=== PATIENT | female | born 1960 | race American Indian/Alaskan Native ===

== ENCOUNTER 2017-10-26 15:55 | Emergency (ER) | payer BC ==
[2017-10-26] MEDS ORDERED: TYLENOL PO ONE (17:17)
--- NOTE | 2017-10-26 17:22 | Emergency Department Report ---
ED General Adult HPI - General Chief complaint: Weakness Stated complaint: DIZZINESS/WEAKNESS Time Seen by Provider: 10/26/17 17:10 Source: patient Mode of arrival: Ambulatory Limitations: No Limitations - History of Present Illness Initial comments: Patient is a 57-year-old female with past medical history of hypertension. Patient is taking Norvasc 2.5 mg daily. 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 Patient stated that she started feeling dizzy. She checked her blood pressure which was 179/80. Patient also complaining of slight headache. She denied any weakness, numbness or tingling sensation. Patient denied any chest pain, neck pain or abdominal pain. - Related Data Allergies Allergy/AdvReac Type Severity Reaction Status Date / Time No Known Allergies Allergy Unverified 05/20/14 05:10 ED Review of Systems ROS: Stated complaint: DIZZINESS/WEAKNESS Other details as noted in HPI Comment: All other systems reviewed and negative Constitutional: denies: chills, fever Respiratory: denies: cough, orthopnea, shortness of breath Cardiovascular: denies: chest pain, palpitations Gastrointestinal: denies: abdominal pain, nausea, vomiting Musculoskeletal: denies: back pain Neurological: headache. denies: weakness, numbness, paresthesias, confusion, abnormal gait ED Past Medical Hx - Past Medical History Previous Medical History?: Yes Hx Hypertension: Yes - Surgical History Additional Surgical History: Appendectomy - Social History Smoking Status: Never Smoker Substance Use Type: None ED Physical Exam - General Limitations: No Limitations General appearance: alert, in no apparent distress - Head Head exam: Present: atraumatic, normocephalic, normal inspection - Eye Eye exam: Present: normal appearance, PERRL - ENT ENT exam: Present: normal exam, normal orophraynx, mucous membranes moist - Neck Neck exam: Present: normal inspection, full ROM. Absent: tenderness, meningismus, lymphadenopathy, thyromegaly - Respiratory Respiratory exam: Present: normal lung sounds bilaterally. Absent: respiratory distress, wheezes, rales, rhonchi, stridor, chest wall tenderness, accessory muscle use, decreased breath sounds, prolonged expiratory - Cardiovascular Cardiovascular Exam: Present: regular rate, normal rhythm, normal heart sounds - GI/Abdominal GI/Abdominal exam: Present: soft, normal bowel sounds. Absent: distended, tenderness, guarding, rebound, rigid, organomegaly, mass, bruit, pulsatile mass , hernia - Extremities Exam Extremities exam: Present: normal inspection, full ROM, normal capillary refill - Back Exam Back exam: Present: normal inspection, full ROM. Absent: tenderness, CVA tenderness (R), CVA tenderness (L), muscle spasm, paraspinal tenderness, vertebral tenderness, rash noted - Neurological Exam Neurological exam: Present: alert, oriented X3, CN II-XII intact, normal gait, reflexes normal - Skin Skin exam: Present: warm, intact ED Course Vital Signs 10/26/17 10/26/17 10/26/17 16:16 18:57 19:12 Temperature 98.5 F 98.6 F Pulse Rate 61 62 66 Respiratory 18 18 Rate Blood Pressure 179/80 156/103 Blood Pressure 178/91 [Left] O2 Sat by Pulse 100 99 Oximetry 10/26/17 19:31 Temperature 98.2 F Pulse Rate 66 Respiratory 16 Rate Blood Pressure Blood Pressure 146/87 [Left] O2 Sat by Pulse 99 Oximetry ED Medical Decision Making - Lab Data Result diagrams: 10/26/17 18:15 10/26/17 18:15 - Radiology Data Radiology results: report reviewed Referring Physician: MORENITA JIMENEZ Patient Name: JAVED HULL Date of : 1960 Sex: Female Report Date: 2017-10-26 Report Status: Finalized Findings [facility] [address] [place] [address] Cat Scan Report Signed Patient: JAVED HULL MR#: [id number] : 1960 Acct:[id number] Age/Sex: 57 / F ADM Date: 10/26/17 Loc: ED Attending Dr: Ordering Physician: MORENITA JIMENEZ Date of Service: 10/26/17 Procedure(s): CT head/brain wo con Accession Number(s): [id number] cc: MORENITA JIMENEZ FINAL REPORT EXAM: CT HEAD/BRAIN WO CON HISTORY: headache, high BP TECHNIQUE: CT examination of the head without IV contrast PRIORS: None. FINDINGS: No acute air-fluid level visualized in the included air-filled sinuses. Bone windows demonstrate no acute fracture. The brain is without mass, mass effect, hemorrhage, or acute infarct. There is no extra-axial intracranial bleed, brain bleed, or midline shift. The ventricles and sulci are age-appropriate. IMPRESSION: No acute CVA, intracranial bleed, or brain mass Transcribed By: BAL Dictated By: MATTHEW HAIDER MD Electronically Authenticated By: MATTHEW HAIDER MD Signed Date/Time: 10/26/171757 DD/ 57 TD/TT: 10/26/171757 - Medical Decision Making Patient stated that she is feeling much better. No headache or dizziness. Critical care attestation.: If time is entered above; I have spent that time in minutes in the direct care of this critically ill patient, excluding procedure time. ED Disposition Clinical Impression: Headache, Malignant hypertension Disposition: DC-01 TO HOME OR SELFCARE Is pt being admited?: No Condition: Stable Instructions: Hypertension (ED) Referrals: PRIMARY CARE, [Primary Care Provider] - 3-5 Days
--- NOTE | 2017-10-26 18:02 | Cat Scan Report ---
FINAL REPORT EXAM: CT HEAD/BRAIN WO CON HISTORY: headache, high BP TECHNIQUE: CT examination of the head without IV contrast PRIORS: None. FINDINGS: No acute air-fluid level visualized in the included air-filled sinuses. Bone windows demonstrate no acute fracture. The brain is without mass, mass effect, hemorrhage, or acute infarct. There is no extra-axial intracranial bleed, brain bleed, or midline shift. The ventricles and sulci are age-appropriate. IMPRESSION: No acute CVA, intracranial bleed, or brain mass
[2017-10-26 18:30] LABS: Basophils % (Auto) 0.2 % (0.0-1.8); Eosinophils # (Auto) 0.1 K/mm3 (0.0-0.4); Eosinophils % (Auto) 2.1 % (0.0-4.3); Hematocrit 40.1 % (30.3-42.9); Hemoglobin 13.5 gm/dl (10.1-14.3); Lymphocytes # (Auto) 1.9 K/mm3 (1.2-5.4); Lymphocytes % (Auto) 42.3 % (13.4-35.0); Mean Corpuscular HGB Conc 34 % (30-34); Mean Corpuscular Hemoglobin 33 pg (28-32); Mean Corpuscular Volume 97 fl (79-97); Monocytes # (Auto) 0.5 K/mm3 (0.0-0.8); Monocytes % (Auto) 12.2 % (0.0-7.3); Platelet Count 213 K/mm3 (140-440); Red Blood Count 4.12 M/mm3 (3.65-5.03); Red Cell Distribution Width 13.7 % (13.2-15.2)
[2017-10-26 18:40] LABS: BUN/Creatinine Ratio 20; Blood Urea Nitrogen 10 mg/dL (7-17); Calcium 9.6 mg/dL (8.4-10.2); Hemolysis Index 11
[2017-10-26] MEDS ORDERED: CATAPRES PO ONE (19:05)
[2017-10-26 19:31] VITALS: BP 146/87
== END 2017-10-26 19:31 | disposition home or self-care (01) ==
LOC: ED 15:55
DX: I10 Essential (primary) hypertension (principal)
CPT/HCPCS: 36415; 70450; 80048; 85025; 99284

== ENCOUNTER 2018-01-09 10:15 | Outpatient (CLI) | payer BC ==
[2018-01-09 10:48] LABS: Hematocrit 42.4 % (30.3-42.9); Hemoglobin 14.5 gm/dl (10.1-14.3); Mean Corpuscular HGB Conc 34 % (30-34); Mean Corpuscular Hemoglobin 32 pg (28-32); Mean Corpuscular Volume 95 fl (79-97); Platelet Count 234 K/mm3 (140-440); Red Blood Count 4.47 M/mm3 (3.65-5.03); Red Cell Distribution Width 13.4 % (13.2-15.2)
[2018-01-09 11:22] LABS: Free T4 (Free Thyroxine) 1.28 ng/dL (0.76-1.46)
[2018-01-09 11:31] LABS: Alanine Aminotransferase 9 units/L (7-56); Albumin 4.5 g/dL (3.9-5); BUN/Creatinine Ratio 16; Blood Urea Nitrogen 8 mg/dL (7-17); Calcium 9.7 mg/dL (8.4-10.2); Chol/HDL Ratio 3.39 %; HDL Cholesterol 58 mg/dL (40-59); Hemolysis Index 2; LDL Cholesterol,Direct 140 mg/dL (50-130)
== END 2018-01-09 10:16 | disposition home or self-care (01) ==
LOC: LAB 10:15
PROVIDERS: ATTEND Internal Medicine
DX: I10 Essential (primary) hypertension (principal)
CPT/HCPCS: 36415; 80053; 80061; 82652; 83036; 84439; 84443; 85027

== ENCOUNTER 2018-08-20 07:33 | Outpatient (CLI) | payer BC ==
[2018-08-20 10:36] LABS: Alanine Aminotransferase 10 units/L (7-56); Albumin 4.5 g/dL (3.9-5); BUN/Creatinine Ratio 18; Blood Urea Nitrogen 11 mg/dL (7-17); Calcium 9.3 mg/dL (8.4-10.2); Hemolysis Index 9
== END 2018-08-20 07:34 | disposition home or self-care (01) ==
LOC: LAB 07:33
PROVIDERS: ATTEND Internal Medicine
DX: R73.03 Prediabetes (principal)
CPT/HCPCS: 36415; 80053; 83036

== ENCOUNTER 2019-01-16 14:01 | Outpatient (CLI) | payer BC ==
--- NOTE | 2019-01-16 16:28 | Mammography Report ---
DIGITAL SCREENING MAMMOGRAM WITH CAD, 01/16/2019 INDICATION: Routine screening mammography. TECHNIQUE: Digital bilateral 2D mammography was obtained in the craniocaudal and mediolateral obliq ue projections. This examination was interpreted with the benefit of Computer-Aided Detection analysi s. COMPARISON: 01/08/2014 FINDINGS: Breast Density: There are scattered areas of fibroglandular density. A right asymmetry on the MLO view requires additional imaging. This may be a vessel. No architectural distortion or suspicious calcifications of the right breast. There is no evidence of dominant mass, suspicious calcifications or architectural distortion in the left breast. IMPRESSION: Right asymmetry requiring additional imaging. Recommend recall for right lateral and MLO spot compression views and right breast ultrasound if needed. Follow up recommendation: Special View: Spot Category 0: Incomplete. Needs additional imaging evaluation and/or prior mammograms for comparison. A "normal" or negative report should not discourage follow up or biopsy of a clinically significant f inding. A written summary of these findings will be mailed to the patient. The patient will be entered into a mammography reporting system which will generate a reminder letter for the patient's next appointmen t at the appropriate interval. The [employer] recommends yearly mammograms starting at age 40 and continuing as l ruby as a woman is in good health. Breast MRI is recommended for women with an approximate 20-25% or greater lifetime risk of breast cancer, including women with a strong family history of breast or ova lien cancer or who have been treated for Hodgkin's disease. Signer Name: Nav Wakefield MD Signed: 01/16/2019 4:23 PM Workstation Name: [id number]
== END 2019-01-16 14:02 | disposition home or self-care (01) ==
LOC: MAMMO 14:01
PROVIDERS: ATTEND Internal Medicine
DX: Z12.31 Encounter for screening mammogram for malignant neoplasm of breast (principal); I10 Essential (primary) hypertension
CPT/HCPCS: 77067

== ENCOUNTER 2019-01-27 16:04 | Outpatient (CLI) | payer BC ==
[2019-01-27 16:30] LABS: Basophils % (Auto) 0.5 % (0.0-1.8); Eosinophils # (Auto) 0.1 K/mm3 (0.0-0.4); Eosinophils % (Auto) 2.1 % (0.0-4.3); Hemoglobin 14.1 gm/dl (10.1-14.3); Lymphocytes # (Auto) 2.2 K/mm3 (1.2-5.4); Lymphocytes % (Auto) 42.2 % (13.4-35.0); Mean Corpuscular HGB Conc 34 % (30-34); Mean Corpuscular Volume 97 fl (79-97); Monocytes # (Auto) 0.6 K/mm3 (0.0-0.8); Monocytes % (Auto) 12.4 % (0.0-7.3); Platelet Count 200 K/mm3 (140-440); Red Blood Count 4.34 M/mm3 (3.65-5.03); Red Cell Distribution Width 13.7 % (13.2-15.2)
[2019-01-27 17:34] LABS: Alanine Aminotransferase 10 units/L (7-56); Albumin 4.2 g/dL (3.9-5); BUN/Creatinine Ratio 20; Blood Urea Nitrogen 10 mg/dL (7-17); Calcium 9.5 mg/dL (8.4-10.2); Chol/HDL Ratio 3.22 %; HDL Cholesterol 54 mg/dL (40-59); Hemolysis Index 3; LDL Cholesterol,Direct 116 mg/dL (50-130)
== END 2019-01-27 16:05 | disposition home or self-care (01) ==
LOC: LAB 16:04
PROVIDERS: ATTEND Internal Medicine
DX: Z13.220 Encounter for screening for lipoid disorders (principal); Z13.29 Encounter for screening for other suspected endocrine disorder; Z13.228 Encounter for screening for other metabolic disorders; Z13.0 Encounter for screening for diseases of the blood and blood-forming organs and certain disorders involving the immune mechanism; E55.9 Vitamin D deficiency, unspecified; I10 Essential (primary) hypertension
CPT/HCPCS: 36415; 80053; 80061; 82652; 83036; 84443; 85025

== ENCOUNTER 2019-01-30 13:19 | Outpatient (CLI) | payer BC ==
--- NOTE | 2019-01-30 14:04 | Mammography Report ---
DIGITAL DIAGNOSTIC MAMMOGRAM WITH CAD, 01/30/2019 INDICATION: Recalled for asymmetry identified at screening. TECHNIQUE: Digital right mammographic imaging was performed. Spot compression views were obtained. This examination was interpreted with the benefit of Computer-aided Detection analysis. COMPARISON: 01/16/2019 FINDINGS: Breast Density: There are scattered areas of fibroglandular density. Lateral medial and spot compression MLO views were performed and are negative. IMPRESSION: No mammographic evidence of malignancy. Follow up recommendation: Routine yearly BI-RADS Category 1: Negative. A "normal" or negative report should not discourage follow up or biopsy of a clinically significant f inding. A written summary of these findings will be mailed to the patient. The patient will be entered into a mammography reporting system which will generate a reminder letter for the patient's next appointmen t at the appropriate interval. According to the [employer], yearly mammograms are recommended starting at age 40 and continuing as long as a woman is in good health. Breast MRI is recommended for women with an gamaliel roximately 20-25% or greater lifetime risk of breast cancer, including women with a strong family his tory of breast or ovarian cancer and women who have been treated for Hodgkin's disease. Signer Name: Nav Wakefield MD Signed: 01/30/2019 2:00 PM Workstation Name: [id number]
== END 2019-01-30 13:20 | disposition home or self-care (01) ==
LOC: MAMMO 13:19
PROVIDERS: ATTEND Internal Medicine
DX: R92.8 Other abnormal and inconclusive findings on diagnostic imaging of breast (principal); I10 Essential (primary) hypertension

== ENCOUNTER 2019-10-28 13:52 | Outpatient (CLI) | payer BC ==
--- NOTE | 2019-10-28 15:25 | XRay Report ---
RIGHT KNEE AP AND LATERAL VIEWS INDICATION / CLINICAL INFORMATION: M25.561 PAIN IN RIGHT KNEE (STANDING VIEWS). COMPARISON: None available. FINDINGS: BONES/JOINT(S): No acute fracture or subluxation. No significant degenerative changes. SOFT TISSUES: No significant abnormality. ADDITIONAL FINDINGS: None. Signer Name: Rey Robison MD Signed: 10/28/2019 3:20 PM Workstation Name: [id number]
== END 2019-10-28 13:53 | disposition home or self-care (01) ==
LOC: XRAY 13:52
PROVIDERS: ATTEND Orthopaedic Surgery
DX: M25.561 Pain in right knee (principal)

== ENCOUNTER 2019-12-09 12:43 | Outpatient (CLI) | payer BC ==
--- NOTE | 2019-12-09 17:11 | Magnetic Resonance Report ---
MRI right knee without contrast INDICATION: Acute generalized right knee pain and swelling. COMPARISON: Right knee radiograph from 10/28/2019 FINDINGS: There is mild tricompartmental DJD with a small joint effusion which is most likely reacti ve. There is also a very tiny popliteal fossa cyst. There is a vertically oriented tear involving the anterior horn of the lateral meniscus. The medial m eniscus is intact. The cruciate ligaments, collateral ligaments, and extensor mechanism are all intact. IMPRESSION: Mild tricompartmental DJD with vertically oriented tear in the anterior horn of the late ral meniscus. Signer Name: Alex Hutchins MD Signed: 12/09/2019 5:06 PM Workstation Name: [id number]
== END 2019-12-09 12:44 | disposition home or self-care (01) ==
LOC: MRI 12:43
PROVIDERS: ATTEND Orthopaedic Surgery
DX: S83.281A Other tear of lateral meniscus, current injury, right knee, initial encounter (principal); M25.461 Effusion, right knee; M71.21 Synovial cyst of popliteal space [Baker], right knee; X58.XXXA Exposure to other specified factors, initial encounter; Y93.89 Activity, other specified; Y92.89 Other specified places as the place of occurrence of the external cause; Y99.8 Other external cause status
CPT/HCPCS: 73721

== ENCOUNTER 2020-01-22 08:58 | Outpatient (CLI) | payer BC ==
--- NOTE | 2020-01-22 12:03 | Mammography Report ---
DIGITAL SCREENING MAMMOGRAM WITH CAD, 01/22/2020 INDICATION: Routine screening mammography. TECHNIQUE: Digital bilateral 2D mammography was obtained in the craniocaudal and mediolateral obliq ue projections. This examination was interpreted with the benefit of Computer-Aided Detection analysi s. COMPARISON: 01/30/2019, 01/16/2019, 02/16/2017 FINDINGS: Breast Density: There are scattered areas of fibroglandular density. There is no evidence of dominant mass, suspicious calcifications or architectural distortion in eithe r breast. IMPRESSION: Follow up recommendation: Routine yearly BI-RADS Category 1: Negative. A "normal" or negative report should not discourage follow up or biopsy of a clinically significant f inding. A written summary of these findings will be mailed to the patient. The patient will be entered into a mammography reporting system which will generate a reminder letter for the patient's next appointmen t at the appropriate interval. The [employer] recommends yearly mammograms starting at age 40 and continuing as l ruby as a woman is in good health. Breast MRI is recommended for women with an approximate 20-25% or greater lifetime risk of breast cancer, including women with a strong family history of breast or ova lien cancer or who have been treated for Hodgkin's disease. Signer Name: Raji Avalos MD Signed: 01/22/2020 11:57 AM Workstation Name: [id number]
== END 2020-01-22 08:59 | disposition home or self-care (01) ==
LOC: MAMMO 08:58
PROVIDERS: ATTEND Internal Medicine
DX: Z12.31 Encounter for screening mammogram for malignant neoplasm of breast (principal)
CPT/HCPCS: 77067

== ENCOUNTER 2020-01-27 12:28 | Outpatient (CLI) | payer BC ==
[2020-01-27 13:00] LABS: Hematocrit 41.1 % (30.3-42.9); Mean Corpuscular HGB Conc 34 % (30-34); Mean Corpuscular Volume 97 fl (79-97); Platelet Count 211 K/mm3 (140-440); Red Blood Count 4.23 M/mm3 (3.65-5.03); Red Cell Distribution Width 13.5 % (13.2-15.2)
[2020-01-27 14:39] LABS: Alanine Aminotransferase 11 units/L (7-56); Blood Urea Nitrogen 9 mg/dL (7-17); Calcium 9.5 mg/dL (8.4-10.2); Chol/HDL Ratio 3.21 %; HDL Cholesterol 56 mg/dL (40-59); Hemolysis Index 3; LDL Cholesterol,Direct 118 mg/dL (50-130)
[2020-01-27 14:40] LABS: BUN/Creatinine Ratio 15
== END 2020-01-27 12:29 | disposition home or self-care (01) ==
LOC: LAB 12:28
PROVIDERS: ATTEND Internal Medicine
DX: Z00.00 Encounter for general adult medical examination without abnormal findings (principal); E55.9 Vitamin D deficiency, unspecified; I10 Essential (primary) hypertension; Z79.899 Other long term (current) drug therapy
CPT/HCPCS: 36415; 80053; 80061; 82652; 83036; 84443; 85027

== ENCOUNTER 2020-06-03 19:46 | Emergency (ER) | payer BC | END 2020-06-03 20:58 | disposition left against medical advice (07) | LOC: ED 19:46 | DX: R10.9 Unspecified abdominal pain (principal); Z53.21 Procedure and treatment not carried out due to patient leaving prior to being seen by health care provider ==

== ENCOUNTER 2020-07-01 07:56 | Outpatient (CLI) | payer BC ==
--- NOTE | 2020-07-01 09:16 | Ultrasound Report ---
ULTRASOUND ABDOMEN, COMPLETE INDICATION / CLINICAL INFORMATION: LOWER QUAD. PAIN. COMPARISON: None available. FINDINGS: PANCREAS: Visualized portions of the pancreas are within normal limits. ABDOMINAL AORTA: No significant abnormality. IVC: No significant abnormality. LIVER: The liver measures 15.2 cm in length. Mild diffuse increased and coarsened hepatic echotextur e. No focal lesion. PORTAL VEIN: Normal hepatopedal blood flow in the main portal vein. GALLBLADDER: There is cholelithiasis. No gallbladder wall thickening or pericholecystic fluid. Negati ve sonographic Pineda's sign. BILE DUCTS: No significant abnormality. Common bile duct measures 5 mm. KIDNEYS: Right: No significant abnormality. Left: No significant abnormality. SPLEEN: No significant abnormality. FREE FLUID: None. ADDITIONAL FINDINGS: No significant findings in the area of concern in the left lower quadrant. IMPRESSION: 1. Mild diffuse increased and coarsened hepatic echotexture, may reflect fatty infiltration or chroni c liver disease. 2. Cholelithiasis. No additional findings of cholecystitis. 3. No significant sonographic findings in the area of concern in the left lower quadrant. Signer Name: Cody Pan MD Signed: 07/01/2020 9:11 AM Workstation Name: [id number]
== END 2020-07-01 07:57 | disposition home or self-care (01) ==
LOC: US 07:56
PROVIDERS: ATTEND Internal Medicine
DX: K80.20 Calculus of gallbladder without cholecystitis without obstruction (principal)
CPT/HCPCS: 76700

== ENCOUNTER 2020-08-24 04:46 | Observation (INO) | payer BC ==
[2020-08-24] MEDS ORDERED: MORPHINE 4 MG/1 ML INJ IV ONE (05:05)
[2020-08-24] MEDS ORDERED: ONDANSETRON 4 MG/2 ML INJ IV ONE (05:05)
[2020-08-24] MEDS ORDERED: SODIUM CHLORIDE 0.9% 1000 ML 1,000 ML IV ONE (05:05)
[2020-08-24 05:30] LABS: Amorphous Crystals,Urine Few; Bilirubin,Urine NEG (Negative); Blood,Urine NEG (Negative); Color,Urine Yellow (Yellow); Mucus,Urine FEW /HPF; Protein,Urine <15 mg/dL mg/dL (Negative); Urobilinogen,Urine < 2.0 mg/dL (<2.0)
[2020-08-24 06:01] LABS: Basophils % (Auto) 0.3 % (0.0-1.8); Eosinophils % (Auto) 0.5 % (0.0-4.3); Hematocrit 43.8 % (30.3-42.9); Lymphocytes # (Auto) 1.5 K/mm3 (1.2-5.4); Lymphocytes % (Auto) 23.2 % (13.4-35.0); Mean Corpuscular HGB Conc 34 % (30-34); Mean Corpuscular Volume 96 fl (79-97); Monocytes # (Auto) 0.6 K/mm3 (0.0-0.8); Monocytes % (Auto) 10.1 % (0.0-7.3); Red Blood Count 4.55 M/mm3 (3.65-5.03); Red Cell Distribution Width 13.1 % (13.2-15.2)
[2020-08-24 06:04] LABS: Platelet Count 224 K/mm3 (140-440)
[2020-08-24 06:10] LABS: Alanine Aminotransferase 103 units/L (7-56); Albumin 4.6 g/dL (3.9-5); Bilirubin,Direct 1.1 mg/dL (0-0.2); Blood Urea Nitrogen 6 mg/dL (7-17); Calcium 9.8 mg/dL (8.4-10.2); Hemolysis Index 8
[2020-08-24 06:13] LABS: BUN/Creatinine Ratio 12
--- NOTE | 2020-08-24 06:20 | Emergency Department Report ---
ED General Adult HPI - General Chief complaint: Abdominal Pain Stated complaint: ABDOMINAL PAIN PUI?: No Time Seen by Provider: 08/24/20 06:08 Source: patient, RN notes reviewed, old records reviewed Mode of arrival: Ambulatory Limitations: No Limitations - History of Present Illness Initial comments: The patient was evaluated in the emergency department for symptoms described in the history of present illness. He/she was evaluated in the context of the global COVID-19 pandemic, which necessitated consideration that the patient might be at risk for infection with the virus that causes COVID-19. Institutional protocols and algorithms that pertain to the evaluation of patients at risk for COVID-19 are in a state of rapid change based on information released by regulatory bodies including the CDC and federal and state organizations. These policies and algorithms were followed during the patient's care in the emergency department. Please note that these policies, procedures and recommendations changed on a rapid basis. This is a pleasant 59-year-old female. She is not known to myself previously. She presents to the ER with a complaint of epigastric and bilateral upper quadrant abdominal pain that radiates to the chest. There is positive nausea but no vomiting. The patient denies headache, neck pain, exertional shortness of breath, diaphoresis, lower abdominal pain, lower back pain, and urinary symptoms. She also denies Covid symptomatology. The patient was given morphine prior to my personal evaluation, she indicates that the morphine improved her pain. She also feels like her pain got worse with eating. The patient does report a recent prolonged airplane trip to [facility], approximately 12 hours in duration. However, she denies shortness of breath, hemoptysis, leg pain, leg swelling, hematemesis and bright red blood per rectum. She denies loss of taste and smell. Of note, her outpatient primary care doctor ordered a right upper quadrant ultrasound in June of this year for similar symptoms, where she was found to have evidence of fatty liver, and cholelithiasis, without evidence of cholecystitis -: Gradual, hour(s) Location: chest, abdomen Radiation: other (Upper abdomen to chest) Severity scale (0 -10): 10 Quality: aching Consistency: intermittent Improves with: medication, rest Worsens with: eating, movement - Related Data Allergies Allergy/AdvReac Type Severity Reaction Status Date / Time No Known Allergies Allergy Unverified 05/20/14 05:10 ED Review of Systems ROS: Stated complaint: ABDOMINAL PAIN Other details as noted in HPI Constitutional: other (Denies loss of taste and smell). denies: fever, weakness Eyes: denies: vision change Respiratory: denies: cough Cardiovascular: chest pain Gastrointestinal: abdominal pain, nausea. denies: diarrhea, hematemesis, melena, hematochezia Genitourinary: denies: dysuria Musculoskeletal: denies: back pain Neurological: denies: weakness Hematological/Lymphatic: denies: easy bleeding ED Past Medical Hx - Past Medical History Hx Hypertension: Yes - Surgical History Additional Surgical History: Appendectomy - Social History Smoking Status: Never Smoker ED Physical Exam - General Limitations: No Limitations General appearance: alert, in no apparent distress, obese - Head Head exam: Present: atraumatic, normocephalic - Eye Eye exam: Present: normal appearance, EOMI. Absent: nystagmus - ENT ENT exam: Present: normal exam, normal orophraynx, mucous membranes moist, normal external ear exam - Neck Neck exam: Present: normal inspection, full ROM. Absent: tenderness, meningismus - Respiratory Respiratory exam: Present: normal lung sounds bilaterally. Absent: respiratory distress, wheezes, rales, rhonchi, stridor, decreased breath sounds - Cardiovascular Cardiovascular Exam: Present: regular rate, normal rhythm, normal heart sounds. Absent: bradycardia, tachycardia, irregular rhythm, systolic murmur, diastolic murmur, rubs, gallop - GI/Abdominal GI/Abdominal exam: Present: soft, tenderness, guarding (There is voluntary guarding the right upper quadrant), other (Has a positive Pineda sign). Absent: distended, rebound, rigid, pulsatile mass - Extremities Exam Extremities exam: Present: normal inspection, full ROM, other (2+ pulses noted in the bilateral upper and lower extremities. There is no palpable cord. negative Homans sign. Muscular compartments are soft. The pelvis is stable.). Absent: pedal edema, calf tenderness - Back Exam Back exam: Present: normal inspection. Absent: tenderness, CVA tenderness (R), CVA tenderness (L), paraspinal tenderness, vertebral tenderness - Neurological Exam Neurological exam: Present: alert, other (No facial droop. Tongue midline. Extraocular movements intact bilaterally. Facial sensation intact to light touch in V1, V2, V3 distribution bilaterally. 5 and a 5 strength in 4 extremities. Sensation intact to light touch in 4 extremities.). Absent: motor sensory deficit - Psychiatric Psychiatric exam: Present: normal affect, normal mood - Skin Skin exam: Present: warm, dry, intact, normal color. Absent: rash ED Course Vital Signs 08/24/20 08/24/20 08/24/20 04:57 05:58 06:36 Temperature 98.4 F Pulse Rate 79 Respiratory 18 20 20 Rate Blood Pressure 160/60 Blood Pressure [Right] O2 Sat by Pulse 99 99 Oximetry 08/24/20 07:13 Temperature Pulse Rate 60 Respiratory 20 Rate Blood Pressure Blood Pressure 109/59 [Right] O2 Sat by Pulse 99 Oximetry - Reevaluation(s) Reevaluation #1: 08/24/20 07:06 Differential diagnosis, including but not limited to: GERD, gastritis, hiatal hernia, pneumonia, cholecystitis, acute coronary syndrome, pulmonary embolism Assessment and plan: 59-year-old female, who is not currently tachycardic, tachypneic or hypoxic, with no leg pain or leg swelling, with epigastric and bilateral upper quadrant abdominal pain, most prominent in the right upper quadrant, with a positive Pnieda sign on my examination, new onset hyperbilirubinemia, new onset transaminitis, I am very suspicious for cholecystitis. Her pain was improved with morphine, which was ordered prior to my personal evaluation of this patient. EKG abnormal, without prior for comparison. Right upper quadrant ultrasound ordered, results pending interpretation. Will discuss with general surgery once ultrasound has been interpreted. Likely admission for the aforementioned. Have discussed this plan of care with the patient, who verbalized understanding and articulated agreement. Reevaluation #2: 08/24/20 07:13 Urinalysis appreciated. Patient has no dysuria. She has no CVA tenderness. 08/24/20 07:40 Hospital physician, Dr. Rosas, To admit the patient to the medical service. - Consultations Consultation #1: 08/24/20 07:40 Discussed patient's history, physical, imaging studies and laboratory studies with general surgeon on-call, Dr. Peter Monroy Requests n.p.o. status, is in agreements to evaluate patient, and to have patient admitted to the general medical service. Indicates that she would likely take the patient to the operating room today. ED Medical Decision Making - Lab Data Result diagrams: 08/24/20 05:31 08/24/20 05:31 Vital Signs 08/24/20 08/24/20 04:57 06:36 Temperature 98.4 F Pulse Rate 79 Respiratory 18 20 Rate Blood Pressure 160/60 O2 Sat by Pulse 99 99 Oximetry Lab Results 08/24/20 08/24/20 08/24/20 Range/Units 05:31 05:31 Unknown WBC 6.3 (4.5-11.0) K/mm3 RBC 4.55 (3.65-5.03) M/mm3 Hgb 15.0 H (10.1-14.3) gm/dl Hct 43.8 H (30.3-42.9) % MCV 96 (79-97) fl MCH 33 H (28-32) pg MCHC 34 (30-34) % RDW 13.1 L (13.2-15.2) % Plt Count 224 (140-440) K/mm3 Lymph % (Auto) 23.2 (13.4-35.0) % [place] % (Auto) 10.1 H (0.0-7.3) % Eos % (Auto) 0.5 (0.0-4.3) % Baso % (Auto) 0.3 (0.0-1.8) % Lymph # (Auto) 1.5 (1.2-5.4) K/mm3 [place] # (Auto) 0.6 (0.0-0.8) K/mm3 Eos # (Auto) 0.0 (0.0-0.4) K/mm3 Baso # (Auto) 0.0 (0.0-0.1) K/mm3 Seg Neutrophils % 65.9 (40.0-70.0) % Seg Neutrophils # 4.2 (1.8-7.7) K/mm3 Sodium 138 (137-145) mmol/L Potassium 3.6 (3.6-5.0) mmol/L Chloride 102.0 (98-107) mmol/L Carbon Dioxide 23 (22-30) mmol/L Anion Gap 17 mmol/L BUN 6 L (7-17) mg/dL Creatinine 0.5 L (0.6-1.2) mg/dL Estimated GFR > 60 ml/min BUN/Creatinine Ratio 12 % Glucose 107 H (65-100) mg/dL Calcium 9.8 (8.4-10.2) mg/dL Total Bilirubin 2.00 H (0.1-1.2) mg/dL Direct Bilirubin 1.1 H (0-0.2) mg/dL Indirect Bilirubin 0.9 mg/dL AST 143 H (5-40) units/L ALT 103 H (7-56) units/L Alkaline Phosphatase 97 (35-129) units/L Total Protein 7.6 (6.3-8.2) g/dL Albumin 4.6 (3.9-5) g/dL Albumin/Globulin Ratio 1.5 % Lipase 40 (13-60) units/L Urine Color Yellow (Yellow) Urine Turbidity Hazy (Clear) Urine pH 8.0 H (5.0-7.0) Ur Specific [place] 1.013 (1.003-1.030) Urine Protein <15 mg/dl (Negative) mg/dL Urine Glucose (UA) Neg (Negative) mg/dL Urine Ketones Neg (Negative) mg/dL Urine Blood Neg (Negative) Urine Nitrite Neg (Negative) Urine Bilirubin Neg (Negative) Urine Urobilinogen < 2.0 (<2.0) mg/dL Ur Leukocyte Esterase Tr (Negative) Urine WBC (Auto) 11.0 H (0.0-6.0) /HPF Urine RBC (Auto) 1.0 (0.0-6.0) /HPF U Epithel Cells (Auto) 1.0 (0-13.0) /HPF Amorphous Crystals Few Urine Mucus Few /HPF - EKG Data -: EKG Interpreted by Ms EKG shows normal: sinus rhythm Rate: bradycardia - EKG Data 08/24/20 07:01 EKG interpreted at 06: 34 Sinus rhythm, bradycardia, 59 bpm. Normal axis, normal intervals, left ventricular hypertrophy, biphasic T waves V2 and V3. This is an abnormal EKG. This is not a STEMI. 08/24/20 07:02 There is no prior EKG available for comparison. - Radiology Data Radiology results: pending, report reviewed, image reviewed ULTRASOUND ABDOMEN, COMPLETE INDICATION / CLINICAL INFORMATION: LOWER QUAD. PAIN. COMPARISON: None available. FINDINGS: PANCREAS: Visualized portions of the pancreas are within normal limits. ABDOMINAL AORTA: No significant abnormali ty. IVC: No significant abnormality. LIVER: The liver measures 15.2 cm in length. Mild diffuse increased and coarsened hepatic echotexture. No focal lesion. PORTAL VEIN: Normal hepatopedal blood flow in the main portal vein. GALLBLADDER: There is cholelithiasis. No gallbladder wall thickening or per icholecystic fluid. Negative sonographic Pineda's sign. BILE DUCTS: No significant abnormality. Common bile duct measures 5 mm. KIDNEYS: Right: No significant abnormality. Left: No significant abnormality. SPLEEN: No significant abnormality. FREE FLUID: None. ADDITIONAL FINDINGS: No significant findings in the area of concern in the left lower quadrant. IMPRESSION: 1. Mild diffuse increased and coarsened hepatic echotexture, may reflect fatty infiltration or chronic liver disease. 2. Cholelithiasis. No additional findings of cholecystitis. 3. No significant sonographic findings in the area of concern in the left lower quadrant. Signer Name: Cody Pan MD Signed: 07/01/2020 8:11 AM Workstation Name: [id number] CHEST 1 VIEW 08/24/2020 6:23 AM INDICATION / CLINICAL INFORMATION: acute chest pain. COMPARISON: 2 views of the chest from 11/06/2018. FINDINGS: SUPPORT DEVICES: None. HEART / MEDIASTINUM: No significant abnormality. LUNGS / PLEURA: Lung volumes are reduced with mild bibasilar atelectasis. The upper lungs are clear. No significant pleural effusion. No pneumothorax. ADDITIONAL FINDINGS: No significant additional findings. IMPRESSION: Mild bibasilar atelectasis without other acute abnormalities. Signer Name: Raji Avalos MD Signed: 08/24/2020 5:53 AM Workstation Name: [id number] ULTRASOUND ABDOMEN, LIMITED (RIGHT UPPER QUADRANT) INDICATION: Right upper quadrant pain, transaminitis. COMPARISON: Complete abdominal ultrasound from 07/01/2020. FINDINGS: Pancreas: Visualized portion shows no significant abnormality. Liver: No significant abnormality. Gallbladder: There is cholelithiasis with gallbladder wall thickening, measuring 4.9 mm. No perich olecystic fluid. Sonographic Pineda's sign: Negative. Bile ducts: No significant abnormality. Common Bile Duct measures 7.7 mm. Free fluid: None. Additional Findings: None. IMPRESSION: Cholelithiasis with gallbladder wall thickening suggestive of acute cholecystitis. Signer Name: Raji Avalos MD Signed: 08/24/2020 6:03 AM Workstation Name: [id number] Critical care attestation.: If time is entered above; I have spent that time in minutes in the direct care of this critically ill patient, excluding procedure time. ED Disposition Clinical Impression: Acute abdominal pain in right upper quadrant, Transaminitis, Hyperbilirubinemia Disposition: OP ADMIT IP TO THIS HOSP Is pt being admited?: Yes Does the pt Need Aspirin: No Condition: Good Instructions: Abdominal Pain (ED) Referrals: DAVID KEVIN MD [Primary Care Provider] - 3-5 Days
--- NOTE | 2020-08-24 06:58 | XRay Report ---
CHEST 1 VIEW 08/24/2020 6:23 AM INDICATION / CLINICAL INFORMATION: acute chest pain. COMPARISON: 2 views of the chest from 11/06/2018. FINDINGS: SUPPORT DEVICES: None. HEART / MEDIASTINUM: No significant abnormality. LUNGS / PLEURA: Lung volumes are reduced with mild bibasilar atelectasis. The upper lungs are clear. No significant pleural effusion. No pneumothorax. ADDITIONAL FINDINGS: No significant additional findings. IMPRESSION: Mild bibasilar atelectasis without other acute abnormalities. Signer Name: Raji Avalos MD Signed: 08/24/2020 6:53 AM Workstation Name: [id number]
--- NOTE | 2020-08-24 07:07 | Ultrasound Report ---
ULTRASOUND ABDOMEN, LIMITED (RIGHT UPPER QUADRANT) INDICATION: Right upper quadrant pain, transaminitis. COMPARISON: Complete abdominal ultrasound from 07/01/2020. FINDINGS: Pancreas: Visualized portion shows no significant abnormality. Liver: No significant abnormality. Gallbladder: There is cholelithiasis with gallbladder wall thickening, measuring 4.9 mm. No perichole cystic fluid. Sonographic Pineda's sign: Negative. Bile ducts: No significant abnormality. Common Bile Duct measures 7.7 mm. Free fluid: None. Additional Findings: None. IMPRESSION: Cholelithiasis with gallbladder wall thickening suggestive of acute cholecystitis. Signer Name: Raji Avalos MD Signed: 08/24/2020 7:03 AM Workstation Name: [id number]
[2020-08-24] MEDS ORDERED: PIPERACIL/TAZOBACTA 4.5/NS 100 4.5 GM/100 ML VIAL IV ONE (07:13)
[2020-08-24] MEDS ORDERED: ACETAMINOPHEN 325 MG TAB PO PRN (07:55)
--- NOTE | 2020-08-24 07:55 | History and Physical Report ---
History of Present Illness Date of examination: 08/24/20 Chief complaint: Abdominal pain History of present illness: 59-year-old female with a medical history of hypertension presented to the em ergency room with chief complaint of abdominal pain that started a couple of weeks ago. She also notes nausea. She recently had an abdominal ultrasound performed for similar issues but has been waiting for results. She said symptoms got worse late last night with associated nausea and she decided to come in for further evaluation. Here in the ER, she had abdominal imaging that showed cholelithiasis with gallbladder wall thickening suggestive of acute cholecystitis. Patient was started on IV antibiotics and made n.p.o. Surgery was consulted. Past History Past Medical History: hypertension Past Surgical History: No surgical history Social history: no significant social history Medications and Allergies Allergies Allergy/AdvReac Type Severity Reaction Status Date / Time No Known Allergies Allergy Unverified 05/20/14 05:10 Review of Systems All systems: negative (Abdominal discomfort) Exam - Physical Exam Narrative exam: VITAL SIGNS: Reviewed. GENERAL: Awake HEAD: No signs of head trauma. EYES: Pupils are equal. Extraocular motions intact. MOUTH: Oropharynx is normal. NECK: No adenopathy, no JVD. CHEST: Chest with diminished breath sounds bilaterally. No wheezes, rales, or rhonchi. CARDIAC: normal S1 and S2, without murmurs, gallops, or rubs. ABDOMEN: Soft, right-sided abdominal tenderness with deep palpation, bowel sounds positive MUSCULOSKELETAL: No edema NEUROLOGIC EXAM: Alert and oriented x3. No focal neurologic deficits SKIN: No obvious lesions - Constitutional Vitals: Temp Pulse Resp BP Pulse Ox 98.4 F 60 20 109/59 99 08/24/20 04:57 08/24/20 07:13 08/24/20 07:13 08/24/20 07:13 08/24/20 07:13 Results - Labs CBC & Chem 7: 08/24/20 05:31 08/24/20 05:31 Labs: Laboratory Last Values WBC 6.3 K/mm3 (4.5-11.0) 08/24/20 05:31 RBC 4.55 M/mm3 (3.65-5.03) 08/24/20 05:31 Hgb 15.0 gm/dl (10.1-14.3) H 08/24/20 05:31 Hct 43.8 % (30.3-42.9) H 08/24/20 05:31 MCV 96 fl (79-97) 08/24/20 05:31 MCH 33 pg (28-32) H 08/24/20 05:31 MCHC 34 % (30-34) 08/24/20 05:31 RDW 13.1 % (13.2-15.2) L 08/24/20 05:31 Plt Count 224 K/mm3 (140-440) 08/24/20 05:31 Lymph % (Auto) 23.2 % (13.4-35.0) 08/24/20 05:31 [place] % (Auto) 10.1 % (0.0-7.3) H 08/24/20 05:31 Eos % (Auto) 0.5 % (0.0-4.3) 08/24/20 05:31 Baso % (Auto) 0.3 % (0.0-1.8) 08/24/20 05:31 Lymph # (Auto) 1.5 K/mm3 (1.2-5.4) 08/24/20 05:31 [place] # (Auto) 0.6 K/mm3 (0.0-0.8) 08/24/20 05:31 Eos # (Auto) 0.0 K/mm3 (0.0-0.4) 08/24/20 05:31 Baso # (Auto) 0.0 K/mm3 (0.0-0.1) 08/24/20 05:31 Seg Neutrophils % 65.9 % (40.0-70.0) 08/24/20 05:31 Seg Neutrophils # 4.2 K/mm3 (1.8-7.7) 08/24/20 05:31 Sodium 138 mmol/L (137-145) 08/24/20 05:31 Potassium 3.6 mmol/L (3.6-5.0) 08/24/20 05:31 Chloride 102.0 mmol/L (98-107) 08/24/20 05:31 Carbon Dioxide 23 mmol/L (22-30) 08/24/20 05:31 Anion Gap 17 mmol/L 08/24/20 05:31 BUN 6 mg/dL (7-17) L 08/24/20 05:31 Creatinine 0.5 mg/dL (0.6-1.2) L 08/24/20 05:31 Estimated GFR > 60 ml/min 08/24/20 05:31 BUN/Creatinine Ratio 12 % 08/24/20 05:31 Glucose 107 mg/dL (65-100) H 08/24/20 05:31 Calcium 9.8 mg/dL (8.4-10.2) 08/24/20 05:31 Total Bilirubin 2.00 mg/dL (0.1-1.2) H 08/24/20 05:31 Direct Bilirubin 1.1 mg/dL (0-0.2) H 08/24/20 05:31 Indirect Bilirubin 0.9 mg/dL 08/24/20 05:31 AST 143 units/L (5-40) H 08/24/20 05:31 ALT 103 units/L (7-56) H 08/24/20 05:31 Alkaline Phosphatase 97 units/L (35-129) 08/24/20 05:31 Total Protein 7.6 g/dL (6.3-8.2) 08/24/20 05:31 Albumin 4.6 g/dL (3.9-5) 08/24/20 05:31 Albumin/Globulin Ratio 1.5 % 08/24/20 05:31 Lipase 40 units/L (13-60) 08/24/20 05:31 Urine Color Yellow (Yellow) 08/24/20 Unknown Urine Turbidity Hazy (Clear) 08/24/20 Unknown Urine pH 8.0 (5.0-7.0) H 08/24/20 Unknown Ur Specific [place] 1.013 (1.003-1.030) 08/24/20 Unknown Urine Protein <15 mg/dl mg/dL (Negative) 08/24/20 Unknown Urine Glucose (UA) Neg mg/dL (Negative) 08/24/20 Unknown Urine Ketones Neg mg/dL (Negative) 08/24/20 Unknown Urine Blood Neg (Negative) 08/24/20 Unknown Urine Nitrite Neg (Negative) 08/24/20 Unknown Urine Bilirubin Neg (Negative) 08/24/20 Unknown Urine Urobilinogen < 2.0 mg/dL (<2.0) 08/24/20 Unknown Ur Leukocyte Esterase Tr (Negative) 08/24/20 Unknown Urine WBC (Auto) 11.0 /HPF (0.0-6.0) H 08/24/20 Unknown Urine RBC (Auto) 1.0 /HPF (0.0-6.0) 08/24/20 Unknown U Epithel Cells (Auto) 1.0 /HPF (0-13.0) 08/24/20 Unknown Amorphous Crystals Few 08/24/20 Unknown Urine Mucus Few /HPF 08/24/20 Unknown Assessment and Plan Assessment and plan: #Acute cholecystitis Maintain n.p.o. IV antibiotics Surgeon consulted for possible laparoscopic cholecystectomy Continue IV hydration #Hypertension Hold home amlodipine for now as blood pressure is okay #DVT prophylaxis-Heparin/Lovenox
[2020-08-24 07:56] LABS: INR 1.02 (0.87-1.13)
--- NOTE | 2020-08-24 09:43 | Consultation ---
History of Present Illness Consult date: 08/24/20 Reason for consult: abdominal pain Chief complaint: Abdominal pain - History of present illness History of present illness: 59-year-old female with a past medical history of hypertension who presents to [facility] emergency room with acute onset upper abdominal pain. The patient states it feels like a tightness and sharp pain in her upper chest that starts from the epigastrium and radiates along bilateral upper quadrants and to the back. She states that she has had this pain intermittently since June 2020. Her primary care physician is Dr. Jimenez who sent her for an ultrasound however she does not know the results. She states that the pain started approximately 2 hours after dinner and slowly got worse. The pain is made better with IV pain medications in the emergency room. Patient admits to multiple episodes of nonbilious/nonbloody emesis. No fevers or chills. Past History Past Medical History: hypertension Past Surgical History: appendectomy (Open) Social history: no significant social history Medications and Allergies Allergies Allergy/AdvReac Type Severity Reaction Status Date / Time No Known Allergies Allergy Unverified 05/20/14 05:10 Active Meds: Active Medications Acetaminophen (Acetaminophen 325 Mg Tab) 650 mg PO Q4H PRN PRN Reason: Pain MILD(1-3)/Fever >100.5/ARMSTRONG Enoxaparin Sodium (Enoxaparin 40 Mg/0.4 Ml Inj) 40 mg SUB-Q QDAY@2200 STEWART; Protocol Piperacillin Sod/Tazobactam Sod (Zosyn/Ns 4.5gm/100ml) 4.5 gm in 100 mls @ 200 mls/hr IV Q6HR STEWART; Protocol Sodium Chloride (Nacl 0.9% 1000 Ml) 1,000 mls @ 75 mls/hr IV DIRECT STEWART Ondansetron HCl (Ondansetron 4 Mg/2 Ml Inj) 4 mg IV Q8H PRN PRN Reason: Nausea And Vomiting Sodium Chloride (Sodium Chloride 0.9% 10 Ml Flush Syringe) 10 ml IV BID STEWART Sodium Chloride (Sodium Chloride 0.9% 10 Ml Flush Syringe) 10 ml IV PRN PRN PRN Reason: LINE FLUSH Review of Systems All systems: negative (10 point ROS performed and negative except for that listed in HPI) Exam Vital Signs Temp Pulse Resp BP Pulse Ox 98.4 F 79 18 160/60 99 05/18/21 04:57 08/24/20 04:57 08/24/20 04:57 08/24/20 04:57 08/24/20 04:57 Narrative exam: Gen.: Awake, alert, oriented x3. No apparent distress ENT: Trachea midline. No lymphadenopathy. No scleral icterus or conjunctival pallor CV: S1, S2 present Respiratory: No audible wheezes Abdomen: Soft, nondistended, epigastric and right upper quadrant tenderness to palpation. Positive voluntary guarding. No rebound, rigidity Extremities: No clubbing, cyanosis, edema Results - Labs 08/24/20 05:31 08/24/20 05:31 Abnormal lab results 08/24/20 08/24/20 08/24/20 Range/Units 05:31 05:31 Unknown Hgb 15.0 H (10.1-14.3) gm/dl Hct 43.8 H (30.3-42.9) % MCH 33 H (28-32) pg RDW 13.1 L (13.2-15.2) % [place] % (Auto) 10.1 H (0.0-7.3) % BUN 6 L (7-17) mg/dL Creatinine 0.5 L (0.6-1.2) mg/dL Glucose 107 H (65-100) mg/dL Total Bilirubin 2.00 H (0.1-1.2) mg/dL Direct Bilirubin 1.1 H (0-0.2) mg/dL AST 143 H (5-40) units/L ALT 103 H (7-56) units/L Urine pH 8.0 H (5.0-7.0) Urine WBC (Auto) 11.0 H (0.0-6.0) /HPF Diabetes panel 08/24/20 Range/Units 05:31 Sodium 138 (137-145) mmol/L Potassium 3.6 (3.6-5.0) mmol/L Chloride 102.0 (98-107) mmol/L Carbon Dioxide 23 (22-30) mmol/L BUN 6 L (7-17) mg/dL Creatinine 0.5 L (0.6-1.2) mg/dL Glucose 107 H (65-100) mg/dL Calcium 9.8 (8.4-10.2) mg/dL AST 143 H (5-40) units/L ALT 103 H (7-56) units/L Alkaline Phosphatase 97 (35-129) units/L Total Protein 7.6 (6.3-8.2) g/dL Albumin 4.6 (3.9-5) g/dL Calcium panel 08/24/20 Range/Units 05:31 Calcium 9.8 (8.4-10.2) mg/dL Albumin 4.6 (3.9-5) g/dL Pituitary panel 08/24/20 Range/Units 05:31 Sodium 138 (137-145) mmol/L Potassium 3.6 (3.6-5.0) mmol/L Chloride 102.0 (98-107) mmol/L Carbon Dioxide 23 (22-30) mmol/L BUN 6 L (7-17) mg/dL Creatinine 0.5 L (0.6-1.2) mg/dL Glucose 107 H (65-100) mg/dL Calcium 9.8 (8.4-10.2) mg/dL Adrenal panel 08/24/20 Range/Units 05:31 Sodium 138 (137-145) mmol/L Potassium 3.6 (3.6-5.0) mmol/L Chloride 102.0 (98-107) mmol/L Carbon Dioxide 23 (22-30) mmol/L BUN 6 L (7-17) mg/dL Creatinine 0.5 L (0.6-1.2) mg/dL Glucose 107 H (65-100) mg/dL Calcium 9.8 (8.4-10.2) mg/dL Total Bilirubin 2.00 H (0.1-1.2) mg/dL AST 143 H (5-40) units/L ALT 103 H (7-56) units/L Alkaline Phosphatase 97 (35-129) units/L Total Protein 7.6 (6.3-8.2) g/dL Albumin 4.6 (3.9-5) g/dL - Imaging US - abdomen: report reviewed, image reviewed Assessment and Plan 59-year-old female with acute cholecystitis Plan: 1. NPO 2. IVF 3. IV abx 4. prn pain and nausea control 5. DVT ppx 6. Recommend cholecystectomy. Patient's LFTs and bilirubin mildly elevated, therefore also recommend IOC. I discussed the pathophysiology of gallbladder disease with the patient along with her diagnostic findings. The indication for cholecystectomy along with all risks, benefits, alternatives to surgery discussed. All questions answered and consent obtained. We will proceed to the OR today. Thank you for this consultation. Please call with any questions or concerns. Evaluation and treatment of this patient was during the time of the national and state emergency arising from COVID19 coronavirus pandemic. Treatment and procedures performed meet the current and available best practice and guidelines for patient during the COVID pandemic.
--- NOTE | 2020-08-24 10:31 | Electrocardiograph Report ---
[facility] Test Date: 2020-08-24 Test Time: 06:32:09 Pat Name: JAVED HULL Department: Room: A354 Gender: F Laundry Operator: NIESHA : 1960 Requested By: YENI NORWOOD Order Number: [id number] Reading MD: Song Villegas Measurements Intervals [place] Rate: 59 P: 45 VT: 144 QRS: 40 QRSD: 79 T: 1 QT: 427 QTc: 422 Interpretive Statements Sinus bradycardia Nonspecific T abnormalities, anterior leads No previous ECG available for comparison Electronically Signed On 08-24-2020 10:30:57 EDT by Song Villegas
[2020-08-24] MEDS ORDERED: ONDANSETRON 4 MG/2 ML INJ IV PRN (11:11)
[2020-08-24] MEDS ORDERED: HYDROmorphone 1 MG/1 ML INJ IV PRN ×2 (11:11)
--- NOTE | 2020-08-24 11:13 | Anesthesia Day of Surgery ---
Anesthesia Day of Surgery - Day of Surgery Patient Examined: Yes Patient H&P Reviewed: Yes Patient is NPO: Yes
--- NOTE | 2020-08-24 11:14 | Anesthesia Consultation ---
Anesthesia Consult and Med Hx Date of service: 08/24/20 - Airway Anesthetic Teeth Evaluation: Good ROM Head & Neck: Adequate Mental/Hyoid Distance: Adequate Mallampati Class: Class II Intubation Access Assessment: Good - Pre-Operative Health Status ASA Pre-Surgery Classification: ASA2, Emergency Proposed Anesthetic Plan: General - Pulmonary Hx Smoking: No - Cardiovascular System Hx Hypertension: Yes - Gastrointestinal Hx Gastroesophageal Reflux Disease: No - Endocrine Hx Non-Insulin Dependent Diabetes: No - Hematic Hx Sickle Cell Disease: No
[2020-08-24] MEDS ORDERED: HYDROmorphone 1 MG/1 ML INJ ONE (12:10)
[2020-08-24] MEDS ORDERED: propofoL 200 MG/20 ML VIAL IV ONE (12:10)
[2020-08-24] MEDS ORDERED: KETOROLAC 30 MG/1 ML INJ ONE (12:11)
[2020-08-24] MEDS ORDERED: LIDOCAINE MPF (2%) 20 MG/1 ML VIAL 5 ML ONE (12:11)
[2020-08-24] MEDS ORDERED: ROCURONIUM 50 MG/5 ML INJ IV ONE (12:13)
[2020-08-24] MEDS ORDERED: BUPIVACAINE/PF (0.5%) 5 MG/1 ML 30 ML VIAL INFILTRATI ONE ×2 (12:16→13:12)
[2020-08-24] MEDS ORDERED: LIDOCAINE (1%) 10 MG/1 ML VIAL 20 ML MDV ONE (12:16)
[2020-08-24] MEDS ORDERED: LACTATED RINGERS 1,000 ML ONE ×2 (12:35→13:51)
[2020-08-24] MEDS ORDERED: SODIUM CHLORIDE 0.9% 50 ML ONE (13:03)
[2020-08-24] MEDS ORDERED: LIDOCAINE (1%) 10 MG/1 ML VIAL 20 ML MDV INFILTRATI ONE (13:12)
[2020-08-24] MEDS ORDERED: GLYCOPYRROLATE 0.4 MG/2 ML INJ ONE (13:50)
[2020-08-24] MEDS ORDERED: ONDANSETRON 4 MG/2 ML INJ ONE (13:50)
[2020-08-24] MEDS ORDERED: NEOSTIGMINE 10MG/10 ML INJ MDV ONE (13:51)
[2020-08-24] MEDS ORDERED: HYDROcodone/ACETAMINOPHEN 5-325 MG TAB PO PRN (13:59)
--- NOTE | 2020-08-24 14:01 | Post Operative Note ---
Pre-op diagnosis: acute cholecystitis Post-op diagnosis: same Findings: 1. Distended gallbladder with thickened wall, pericholecystic fluid, stones 2. Negative cholangiogram Procedure: lap jos emiguel with IOC Anesthesia: FIONA, local Surgeon: DARCY WOOD Well Puller: GET HOFFMANN Estimated blood loss: minimal Pathology: list (gallbladder) Specimen disposition: to lab Condition: stable Disposition: PACU
--- NOTE | 2020-08-24 14:23 | Fluoroscopy Report ---
Cholangiogram operative HISTORY: Cholecystitis FINDINGS: 15 seconds of fluoroscopy time was provided by radiology during intraoperative cholangiogra m. 2 fluoroscopic images are presented demonstrating contrast agent in the biliary tree and duodenum. Please correlate with the operative report as needed. Signer Name: Mich Sparorw Jr, MD Signed: 08/24/2020 2:19 PM Workstation Name: [id number]
--- NOTE | 2020-08-24 14:29 | Post Anesthesia Evaluation ---
- Post Anesthesia Evaluation Patient Participated: Yes Airway Patent: Yes Stable Respiratory Function: Yes Nausea/Vomiting: No Temp > 96.8F: Yes Pain Manageable: Yes Adequeate Hydration: Yes Anesthesia Complications: No Block Receding Appropriately: Not Applicable Patient on Ventilator: No
--- NOTE | 2020-08-24 15:04 | Operative Report ---
Operative Report Operative Report: Date: 08/24/20 Pre-op diagnosis: acute cholecystitis Post-op diagnosis: same Findings: 1. Distended gallbladder with thickened wall, pericholecystic fluid, stones 2. Negative cholangiogram Procedure: lap jose miguel with IOC Anesthesia: FIONA, local Surgeon: DARCY WOOD Game And Fish Protector: GET HOFFMANN Estimated blood loss: minimal Pathology: list (gallbladder) Specimen disposition: to lab Condition: stable Disposition: PACU HPI an indication: 59-year-old female who presented to the ER with severe epigastric abdominal pain radiating to the upper abdomen and chest. This was associated with n/v. W/u in ER including Abd u/s revealed acute cholecystitis. Bilirubin and LFTs mildly elevated. It was recommended that the patient undergo cholecystectomy with IOC. All risks, benefits, alternatives to surgery were discussed in detail and questions answered. Consent was obtained for laparoscopic, possible open cholecystectomy, with cholangiogram. Procedure in detail: The patient was identified in the preoperative area and taken back to the operating room, placed on the operating room table in supine position. After anesthesia was induced, the abdomen was prepped and draped in u sual sterile fashion and timeout was performed. Local anesthetic was infiltrated into all of the skin incision sites. Using an 11 blade, a supraumbilical incision was made through which a Veress needle was inserted. The position of the veress needle was confirmed with the saline drop test and the abdomen was then insufflated to 15 mmHg without incident. The veress needle was then removed and a 5 mm Optiview trocar placed through this incision. The abdomen was then inspected and there was no underlying injury to any of the abdominal contents. An additional 12 mm subxyphoid port, and 2, 5mm RUQ ports were then placed under direct visualization. The patient was then placed into reverse Trendelberg and tilted to the left. The gallbladder was distended with adhesions to the omentum. The fundus was grasped and retracted cephelad by the physician assistant surgery surgeon. The adhesions from the omentum to the gallbladder were dissected using hook electrocautery. The infundibulum was grasped and retracted laterally. The cystic duct and artery were then carefully dissected and skeletonized. The cystic duct and artery were the only two structures seen entering the gallbladder. The critical view was successfully obtained. Two clips were placed on the proximal cystic artery and the artery were ligated distal to the clips with hook electrocautery. 1 clip was placed on the distalmost aspect of the cystic duct. A ductotomy was created just proximal to this clip using endoshears. The cholangiogram catheter was inserted into the duct easily without resistance and secured with Mchugh clamp. Injectable saline was instilled into the catheter and flushed easily without leakage. Cholangiogram was then performed with 50/50 mixture of injectable saline and Omnipaque dye. The cholangiogram showed prompt opacification of the cystic duct, common bile duct, intrahepatic biliary ducts, duodenum. There was no filling defect seen. The common bile duct tapered normally. The cholangiogram catheter was then removed and the remainder of the dissection performed. 3 clips were placed on the proximal aspect of the cystic duct and it was completely transected using EndoShears. The gallbladder was dissected from the liver bed using hook electrocautery. The gallbladder wall was thickened with pericholecystic fluid. The gallbladder was placed into a Endo Catch bag and removed from the abdomen via the 12mm port. The gallbladder contained several small stones. The gallbladder fossa was then inspected and there was no identifiable bleeding or bile leakage. Hemostasis was ensured. The clips on the cystic duct and artery were visualized and intact. The patient was then placed into neutral position and Morison's pouch was irrigated and the irrigant returned clear. The 12 mm port fascia was closed with interrupted 0 Vicryl sutures using the Tano Neri device. The remaining ports were removed under direct visualization. Skin incisions were closed with 4-0 Monocryl subcuticular stitches and skin glue. All skin incisions were once again infiltrated with local anesthetic. At the end case all sponge, instrument, sharp counts were correct 2. The patient was awoken from anesthesia, extubated, and taken to PACU in stable condition.
[2020-08-24] MEDS: PIPERACIL/TAZOBACTA 4.5/NS 100 4.5 GM/100 ML VIAL IV SCH ×3 (17:23→23:23)
[2020-08-24] MEDS: SODIUM CHLORIDE 0.9% 1000 ML 1,000 ML IV SCH (17:24)
[2020-08-24] MEDS: ONDANSETRON 4 MG/2 ML INJ IV PRN ×2 (17:51→21:45)
[2020-08-24] MEDS: MORPHINE 2 MG/1 ML INJ IV PRN (21:45)
[2020-08-24] MEDS ORDERED: ENOXAPARIN 40 MG/0.4 ML INJ SUB-Q SCH (22:00)
[2020-08-25] MEDS: PIPERACIL/TAZOBACTA 4.5/NS 100 4.5 GM/100 ML VIAL IV SCH (05:15)
[2020-08-25] MEDS: MORPHINE 2 MG/1 ML INJ IV PRN (05:27)
[2020-08-25] MEDS: SODIUM CHLORIDE 0.9% 1000 ML 1,000 ML IV SCH (05:35)
[2020-08-25 07:55] LABS: Basophils % (Auto) 0.5 % (0.0-1.8); Eosinophils # (Auto) 0.1 K/mm3 (0.0-0.4); Eosinophils % (Auto) 1.9 % (0.0-4.3); Hematocrit 38.6 % (30.3-42.9); Hemoglobin 13.7 gm/dl (10.1-14.3); Lymphocytes # (Auto) 1.4 K/mm3 (1.2-5.4); Lymphocytes % (Auto) 28.5 % (13.4-35.0); Mean Corpuscular HGB Conc 36 % (30-34); Mean Corpuscular Volume 97 fl (79-97); Monocytes # (Auto) 0.5 K/mm3 (0.0-0.8); Monocytes % (Auto) 10.2 % (0.0-7.3); Platelet Count 197 K/mm3 (140-440); Red Blood Count 3.99 M/mm3 (3.65-5.03); Red Cell Distribution Width 13.3 % (13.2-15.2)
--- NOTE | 2020-08-25 09:06 | Discharge Summary ---
Providers - Providers Date of Admission: 08/24/20 07:41 Date of discharge: 08/25/20 Attending physician: DESTINY BYRNE 08/24/20 07:08 Consult to Physician [CONS] Urgent Comment: Consulting Provider: DARCY WOOD Physician Instructions: Reason For Exam: acute cholecystitis Primary care physician: DAVID KEVIN Hospitalization Condition: Good Hospital course: 59-year-old female with a medical history of hypertension presented to the emergency room with chief complaint of abdominal pain that started a couple of weeks ago. She also notes nausea. She recently had an abdominal ultrasound performed for similar issues but has been waiting for results. She said symptoms got worse late last night with associated nausea and she decided to come in for further evaluation. Here in the ER, she had abdominal imaging that showed cholelithiasis with gallbladder wall thickening suggestive of acute cholecystitis. Patient was st arted on IV antibiotics and made n.p.o. Surgery was consulted. Patient had laparoscopic cholecystectomy. She was started on a diet and feels great. She will complete PO antibiotics at home. Plan to follow up with surgery in a week. She agrees with plan Disposition: DC-01 TO HOME OR SELFCARE Final Discharge Diagnosis (Prints w/discharge instructions): Acute cholecystitis Time spent for discharge: 35 mins Core Measure Documentation - Palliative Care Palliative Care/ Comfort Measures: Not Applicable - Core Measures Any of the following diagnoses?: none Exam - Physical Exam Narrative exam: VITAL SIGNS: Reviewed. GENERAL: Awake HEAD: No signs of head trauma. EYES: Pupils are equal. Extraocular motions intact. MOUTH: Oropharynx is normal. NECK: No adenopathy, no JVD. CHEST: Chest with diminished breath sounds bilaterally. No wheezes, rales, or rhonchi. CARDIAC: normal S1 and S2, without murmurs, gallops, or rubs. ABDOMEN: Soft, right-sided abdominal tenderness with deep palpation, bowel sounds positive MUSCULOSKELETAL: No edema NEUROLOGIC EXAM: Alert and oriented x3. No focal neurologic deficits SKIN: No obvious lesions - Constitutional Vitals: Temp Pulse Resp BP Pulse Ox 100.6 F H 106 H 18 128/81 95 08/25/20 03:56 08/25/20 03:56 08/25/20 05:57 08/25/20 03:56 08/25/20 03:56 Plan Diet: low salt Additional Instructions: Complete antibiotics in 4 days. Follow up with general surgery in 2 weeks Follow up with: DARCY WOOD DO [Staff Physician] - 14 Days DAVID KEVIN MD [Primary Care Provider] - 3-5 Days Prescriptions: Ciprofloxacin HCl [Ciprofloxacin TAB] 250 mg PO BID #8 tablet metroNIDAZOLE [Flagyl] 500 mg PO Q8HR #12 tablet HYDROcodone/APAP 5-325 [Myrtle 5-325 mg TAB] 1 each PO Q6H PRN 3 Days #10 tablet PRN Reason: Pain, Moderate (4-6)
[2020-08-25 09:47] LABS: BUN/Creatinine Ratio 10; Blood Urea Nitrogen 8 mg/dL (7-17); Calcium 8.7 mg/dL (8.4-10.2); Hemolysis Index 8
[2020-08-25 10:29] LABS: Albumin 3.5 g/dL (3.9-5); Bilirubin,Direct 1.4 mg/dL (0-0.2)
[2020-08-25] MEDS ORDERED: POTASSIUM CHLORIDE ER 20 MEQ TAB PO NR (11:15)
[2020-08-25 13:41] VITALS: BP 141/73
--- NOTE | 2020-08-25 16:01 | Progress Note ---
Assessment and Plan 59-year-old female status post laparoscopic appendectomy with IOC, postop day 1 Plan: 1. reg diet 2. dc abx 3. prn PO pain control 4. Will repeat LFTs, Bili next week as outpatient. Trended up slightly today but likely reactive. IOC was negative for choledocolithiasis 5. IS/pulm toilet - IS provided to patient and instructed patient to use at home for next 2-3 days. 6. Okay to discharge from surgery standpoint. Patient given written and verbal discharge instructions. She was advised to call the surgery clinic and make an appointment for follow-up for 2 weeks. She was also instructed to present to the lab at [facility] on 08/30/2020 for follow-up labs. Discussed with Dr. Rosas Thank you, please call with any questions or concerns. Evaluation and treatment of this patient was during the time of the national and state emergency arising from COVID19 coronavirus pandemic. Treatment and procedures performed meet the current and available best practice and guidelines for patient during the COVID pandemic. Subjective Date of service: 08/25/20 Narrative: Patient seen and examined. No acute complaints. She states her pain is very well controlled. She has tolerated diet. She is ambulating. Temp of 100.6 overnight. Has not received an incentive spirometer. No nausea or vomiting. Objective Vital Signs - 12hr 08/25/20 08/25/20 08/25/20 03:56 05:27 05:57 Temperature 100.6 F H Pulse Rate 106 H Respiratory 16 18 18 Rate Blood Pressure Blood Pressure 128/81 [Right] O2 Sat by Pulse 95 Oximetry 08/25/20 12:08 Temperature 99.3 F Pulse Rate 65 Respiratory 20 Rate Blood Pressure 141/73 Blood Pressure [Right] O2 Sat by Pulse 93 Oximetry - General physical appearance Narrative Exam: Gen.: Awake, alert, oriented x3. No apparent distress ENT: Trachea midline. No lymphadenopathy. No scleral icterus or conjunctival pallor CV: S1, S2 present Respiratory: No audible wheezes Abdomen: Soft, nondistended, nontender. Incisions are clean, dry, intact. No rebound, rigidity, guarding Extremities: No clubbing, cyanosis, edema - Labs 08/25/20 07:15 08/25/20 07:15 Diabetes panel 08/25/20 08/25/20 Range/Units 07:15 07:15 Sodium 141 (137-145) mmol/L Potassium 3.4 L (3.6-5.0) mmol/L Chloride 106.1 (98-107) mmol/L Carbon Dioxide 22 (22-30) mmol/L BUN 8 (7-17) mg/dL Creatinine 0.8 D (0.6-1.2) mg/dL Glucose 94 (65-100) mg/dL Calcium 8.7 (8.4-10.2) mg/dL AST 214 H (5-40) units/L ALT 275 H (7-56) units/L Alkaline Phosphatase 107 (35-129) units/L Total Protein 6.5 (6.3-8.2) g/dL Albumin 3.5 L (3.9-5) g/dL Calcium panel 08/25/20 08/25/20 Range/Units 07:15 07:15 Calcium 8.7 (8.4-10.2) mg/dL Albumin 3.5 L (3.9-5) g/dL Pituitary panel 08/25/20 Range/Units 07:15 Sodium 141 (137-145) mmol/L Potassium 3.4 L (3.6-5.0) mmol/L Chloride 106.1 (98-107) mmol/L Carbon Dioxide 22 (22-30) mmol/L BUN 8 (7-17) mg/dL Creatinine 0.8 D (0.6-1.2) mg/dL Glucose 94 (65-100) mg/dL Calcium 8.7 (8.4-10.2) mg/dL Adrenal panel 08/25/20 08/25/20 Range/Units 07:15 07:15 Sodium 141 (137-145) mmol/L Potassium 3.4 L (3.6-5.0) mmol/L Chloride 106.1 (98-107) mmol/L Carbon Dioxide 22 (22-30) mmol/L BUN 8 (7-17) mg/dL Creatinine 0.8 D (0.6-1.2) mg/dL Glucose 94 (65-100) mg/dL Calcium 8.7 (8.4-10.2) mg/dL Total Bilirubin 2.90 H (0.1-1.2) mg/dL AST 214 H (5-40) units/L ALT 275 H (7-56) units/L Alkaline Phosphatase 107 (35-129) units/L Total Protein 6.5 (6.3-8.2) g/dL Albumin 3.5 L (3.9-5) g/dL
== END 2020-08-25 14:07 | disposition home or self-care (01) ==
LOC: ED 04:46 → EEVIPCON 04:46 → 3A 07:41
PROVIDERS: ADMIT Internal Medicine; ATTEND Internal Medicine
DX: K81.0 Acute cholecystitis (principal); I10 Essential (primary) hypertension; E80.6 Other disorders of bilirubin metabolism; R74.01 Elevation of levels of liver transaminase levels; Z90.49 Acquired absence of other specified parts of digestive tract
CPT/HCPCS: 36415; 47563; 71045; 74300; 76705; 80048; 80076; 81001; 82550; 83690; 83735; 84484; 85025; 85610; 87086; 88304; 93005; 96361; 96365; 96366; 96372; 96375; 96376; 99285; G0378; J1170; J1650; J1885; J2270; J2405; J2543; J2704; J2710; J7030; J7120; Q9967

== ENCOUNTER 2020-08-31 10:58 | Outpatient (CLI) | payer BC ==
[2020-08-31 11:35] LABS: Alanine Aminotransferase 172 units/L (7-56); Albumin 3.9 g/dL (3.9-5); Blood Urea Nitrogen 9 mg/dL (7-17); Calcium 9.4 mg/dL (8.4-10.2); Hemolysis Index 13
[2020-08-31 11:37] LABS: BUN/Creatinine Ratio 18
== END 2020-08-31 10:59 | disposition home or self-care (01) ==
LOC: LAB 10:58
PROVIDERS: ATTEND Surgery
DX: R10.11 Right upper quadrant pain (principal)
CPT/HCPCS: 36415; 80053

== ENCOUNTER 2020-11-05 12:44 | Emergency (ER) | payer BC ==
[2020-11-05 12:53] VITALS: BP 132/69
--- NOTE | 2020-11-05 13:01 | Emergency Department Report ---
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 She states yesterday they were having a difficult delivery she had to pressure in the patient's hips to help deliver the shoulders of the baby. She states that she started having pain after went home took some ibuprofen woke up this morning pain is persistent she came to work took an ibuprofen pain is still persistent is worse when she does certain movements. She states is more on the right muscular area of her neck. She denies any other injuries. She states she takes her blood pressure medication as prescribed. MD Complaint: neck pain, neck injury Onset/Timin -: days(s) Place: work Severity: moderate Severity scale (0 -10): 6 Quality: sharp, stabbing Consistency: constant Improves With: none Worsens With: movement of neck Context: other (Putting pressure on the patient's pelvis monitor baby was being delivered) Associated Symptoms: none Treatments Prior to Arrival: Ibuprofen - Related Data Home Medications Medication Instructions Recorded Confirmed Last Taken Norvasc 2.5 mg PO DAILY 08/24/20 08/24/20 08/23/20 07:00 Previous Rx's Medication Instructions Recorded Last Taken Type Ciprofloxacin HCl [Ciprofloxacin 250 mg PO BID #8 tablet 08/25/20 Unknown Rx TAB] HYDROcodone/APAP 5-325 [[place] 1 each PO Q6H PRN 3 Days #10 tablet 08/25/20 Unknown Rx 5-325 mg TAB] metroNIDAZOLE [Flagyl] 500 mg PO Q8HR #12 tablet 08/25/20 Unknown Rx Baclofen [Lioresal] 10 mg PO TID #20 tab 11/05/20 Unknown Rx Ibuprofen [Motrin 800 MG tab] 800 mg PO Q8HR PRN #30 tablet 11/05/20 Unknown Rx Allergies Allergy/AdvReac Type Severity Reaction Status Date / Time No Known Allergies Allergy Verified 11/05/20 12:53 ED Review of Systems ROS: Stated complaint: RT SHOULDER PAINS Other details as noted in HPI Comment: All other systems reviewed and negative ED Past Medical Hx - Past Medical History Hx Hypertension: Yes Hx Congestive Heart Failure: No Hx Diabetes: No Hx Sickle Cell Disease: No Hx Asthma: No Hx COPD: No Hx HIV: No - Surgical History Hx Appendectomy: Yes Additional Surgical History: Appendectomy - Social History Smoking Status: Never Smoker - Medications Home Medications: Home Medications Medication Instructions Recorded Confirmed Last Taken Type Norvasc 2.5 mg PO DAILY 08/24/20 08/24/20 08/23/20 07:00 History Ciprofloxacin HCl [Ciprofloxacin 250 mg PO BID #8 tablet 08/25/20 Unknown Rx TAB] HYDROcodone/APAP 5-325 [[place] 1 each PO Q6H PRN 3 Days #10 tablet 08/25/20 Unknown Rx 5-325 mg TAB] metroNIDAZOLE [Flagyl] 500 mg PO Q8HR #12 tablet 08/25/20 Unknown Rx Baclofen [Lioresal] 10 mg PO TID #20 tab 11/05/20 Unknown Rx Ibuprofen [Motrin 800 MG tab] 800 mg PO Q8HR PRN #30 tablet 11/05/20 Unknown Rx ED Physical Exam - General Limitations: No Limitations - Eye Eye exam: Present: normal appearance - ENT ENT exam: Present: mucous membranes moist, normal external ear exam - Neck Neck exam: Present: tenderness, full ROM. 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 She states yesterday they were having a difficult delivery she had to pressure in the patient's hips to help deliver the shoulders of the baby. She states that she started having pain after went home took some ibuprofen woke up this morning pain is persistent she came to work took an ibuprofen pain is still persistent is worse when she does certain movements. She states is more on the right muscular area of her neck. She denies any other injuries. She states she takes her blood pressure medication as prescribed. Patient has muscular trapezius tenderness pain to the right side. Discussed with patient we will place her on ibuprofen 800, baclofen which is a muscle relaxant. Recommend [id number] Voltaren gel or Aspercreme. Discussed with patient to follow-up with her primary care provider if it persist or gets worse. Critical care attestation.: If time is entered above; I have spent that time in minutes in the direct care of this critically ill patient, excluding procedure time. ED Disposition Clinical Impression: Neck muscle strain Qualifiers: Encounter type: initial encounter Qualified Code(s): S16.1XXA - Strain of muscle, fascia and tendon at neck level, initial encounter Disposition: TO HOME OR SELFCARE Is pt being admited?: No Does the pt Need Aspirin: No Condition: Stable Instructions: Cervical Strain and Sprain Rehab-SportsMed Additional Instructions: Please take muscle relaxant and ibuprofen as needed. You can try [id number]-iaynsip Voltaren gel or Aspercreme topical. Increase your fluid intake. Try to rest. Follow-up with your primary care provider if no relief. Prescriptions: Baclofen [Lioresal] 10 mg PO TID #20 tab Ibuprofen [Motrin 800 MG tab] 800 mg PO Q8HR PRN #30 tablet PRN Reason: Pain , Severe (7-10) Referrals: JIM PAUL MD [Staff Physician] - 3-5 Days Forms: Work/School Release Form(ED)
== END 2020-11-05 13:15 | disposition home or self-care (01) ==
LOC: ED 12:44
DX: S16.1XXA Strain of muscle, fascia and tendon at neck level, initial encounter (principal); X50.9XXA Other and unspecified overexertion or strenuous movements or postures, initial encounter; Y93.89 Activity, other specified; Y92.89 Other specified places as the place of occurrence of the external cause; Y99.8 Other external cause status
CPT/HCPCS: 99281

== ENCOUNTER 2021-01-21 10:01 | Outpatient (CLI) | payer BC ==
--- NOTE | 2021-01-21 11:51 | Mammography Report ---
DIGITAL SCREENING MAMMOGRAM WITH CAD, 01/21/2021 CLINICAL INFORMATION / INDICATION: Routine screening mammography. SCREENING MAMMOGRAM TECHNIQUE: Digital bilateral 2D mammography was obtained in the craniocaudal and mediolateral obliqu e projections. This examination was interpreted with the benefit of Computer-Aided Detection analysis . COMPARISON: 01/22/2020. FINDINGS: Breast Density: There are scattered areas of fibroglandular density. No dominant mass, suspicious calcifications, or architectural distortion in either breast. Mild bilateral nodularity unchanged. IMPRESSION: No mammographic evidence of malignancy. Follow up recommendation: Routine yearly BI-RADS Category 2: Benign. A "normal" or negative report should not discourage follow up or biopsy of a clinically significant f inding. A written summary of these findings will be mailed to the patient. The patient will be entered into a mammography reporting system which will generate a reminder letter for the patient's next appointmen t at the appropriate interval. The [employer] recommends yearly mammograms starting at age 40 and continuing as l ruby as a woman is in good health. Breast MRI is recommended for women with an approximate 20-25% or greater lifetime risk of breast cancer, including women with a strong family history of breast or ova lien cancer or who have been treated for Hodgkin's disease. Signer Name: Chad Arnold MD Signed: 01/21/2021 11:46 AM Workstation Name: [id number]
== END 2021-01-21 10:02 | disposition home or self-care (01) ==
LOC: MAMMO 10:01
PROVIDERS: ATTEND Internal Medicine
DX: Z12.31 Encounter for screening mammogram for malignant neoplasm of breast (principal)
CPT/HCPCS: 77067

== ENCOUNTER 2021-04-19 09:15 | Outpatient (CLI) | payer BC ==
--- NOTE | 2021-04-19 10:12 | XRay Report ---
BILATERAL KNEE 1 VIEW(S) INDICATION / CLINICAL INFORMATION: PAIN COMPARISON: None available. FINDINGS: BONES / JOINT(S): No acute fracture or subluxation. No significant arthritis. SOFT TISSUES: No significant abnormality. ADDITIONAL FINDINGS: None. Signer Name: Jonn Leyva MD Signed: 04/19/2021 10:08 AM Workstation Name: [email or web address]
== END 2021-04-19 09:16 | disposition home or self-care (01) ==
LOC: XRAY 09:15
PROVIDERS: ATTEND Orthopaedic Surgery
DX: S82.91XA Unspecified fracture of right lower leg, initial encounter for closed fracture (principal); M25.561 Pain in right knee; X58.XXXA Exposure to other specified factors, initial encounter; Y93.89 Activity, other specified; Y92.89 Other specified places as the place of occurrence of the external cause; Y99.8 Other external cause status
CPT/HCPCS: 73565

== ENCOUNTER 2021-05-02 06:10 | Day surgery (SDC) | payer BC ==
[~2021-05-02 06:10] MED LIST: LACTATED RINGERS 1,000 ML ONE; ceFAZolin/Water 2 GM/20 ML 2 GM/20 ML SYRINGE IV NR
[2021-05-02] MEDS ORDERED: MIDAZOLAM 2 MG/2 ML INJ ONE (07:19)
--- NOTE | 2021-05-02 07:23 | Anesthesia Consultation ---
Anesthesia Consult and Med Hx Date of service: 05/02/21 - Airway Anesthetic Teeth Evaluation: Good ROM Head & Neck: Adequate Mental/Hyoid Distance: Adequate Mallampati Class: Class II Intubation Access Assessment: Probably Good - Pre-Operative Health Status ASA Pre-Surgery Classification: ASA2 Proposed Anesthetic Plan: General - Pulmonary Hx Smoking: No Hx Asthma: No COPD: No Hx Pneumonia: No Hx Sleep Apnea: No (JODY PRE SCREEN LOW RISK) - Cardiovascular System Hx Hypertension: Yes (X 3 YRS) - Central Nervous System Hx Psychiatric Problems: No - Gastrointestinal Hx Gastroesophageal Reflux Disease: No - Endocrine Hx End Stage Renal Disease: No Hx Non-Insulin Dependent Diabetes: No - Hematic Hx Anemia: No Hx Sickle Cell Disease: No - Other Systems Hx Cancer: No
--- NOTE | 2021-05-02 07:24 | Anesthesia Day of Surgery ---
Anesthesia Day of Surgery - Day of Surgery Patient Examined: Yes Patient H&P Reviewed: Yes Patient is NPO: Yes
[2021-05-02] MEDS ORDERED: LACTATED RINGERS 1,000 ML IV SCH (07:30)
[2021-05-02] MEDS ORDERED: HYDROmorphone 1 MG/1 ML INJ IV PRN ×2 (07:30)
[2021-05-02] MEDS ORDERED: ONDANSETRON 4 MG/2 ML INJ IV PRN (07:30)
[2021-05-02] MEDS ORDERED: methylPREDNISolone ACETATE 40 MG/1 ML INJ ONE (07:52)
[2021-05-02] MEDS ORDERED: BUPIVACAINE-EPINEPHRINE/PF 0.25%-1:200,000 (30 ML) VIAL INFILTRATI ONE (07:53)
[2021-05-02] MEDS ORDERED: fentaNYL 100 MCG/2 ML INJ ONE (07:54)
[2021-05-02] MEDS ORDERED: LIDOCAINE MPF (2%) 20 MG/1 ML VIAL 5 ML ONE (07:54)
[2021-05-02] MEDS ORDERED: propofoL 200 MG/20 ML VIAL IV ONE (07:54)
[2021-05-02] MEDS ORDERED: MIDAZOLAM 2 MG/2 ML INJ IV NR (08:00)
[2021-05-02] MEDS ORDERED: SCOPOLAMINE TRANSDERMAL PATCH 72 HR TD NR (08:00)
[2021-05-02] MEDS ORDERED: FAMOTIDINE 20 MG/2 ML INJ IV NR (08:00)
[2021-05-02] MEDS ORDERED: dexAMETHasone 20 MG/5 ML VIAL ONE (09:52)
[2021-05-02] MEDS ORDERED: KETOROLAC 30 MG/1 ML INJ ONE (09:52)
[2021-05-02] MEDS ORDERED: LACTATED RINGERS 1,000 ML ONE (10:01)
[2021-05-02] MEDS ORDERED: HYDROmorphone 1 MG/1 ML INJ ONE (10:08)
[2021-05-02] MEDS ORDERED: HYDROcodone/ACETAMINOPHEN 5-325 MG TAB PO PRN (10:24)
--- NOTE | 2021-05-02 10:54 | Operative Report ---
Operative Report Operative Report: Preop diagnosis : Medial meniscus tear ,right knee Postop diagnosis: Same 1. Degenerative tear posterior horn medial meniscus, right knee; 2. Chondromalacia medial compartment, right knee Procedure: 1. Surgical arthroscopy, right knee; 2. Arthromeniscectomy/debridement, right knee Surgeon: Cordell Hernández MD magistrate assistant: Anesthesia: General with LMA Details of operative technique: The patient was prepared in the same-day surgery area and was then brought to the operating room where she underwent general anesthesia utilizing an LMA. She was then placed in the supine position and all pressure points were well-padded. The right knee and lower extremity were prepped and draped in the usual sterile fashion utilizing ChloraPrep solution. The extremity was then elevated and exsanguinated and the tourniquet was inflated to 300 mmHg. A timeout was then called by the circulating nurse and once again the correct site was identified. Arthroscopy was carried out through an anterolateral approach. The patient was noted to have what appeared to be a degenerative tear in the posterior horn of the medial meniscus. The medial femoral condyle in the posterior aspect showed normal pristine cartilage as was the tibial plateau. Anteriomedially however in the same compartment there was significant changes of chondromalacia with bumpy irregular thicknesses of articular cartilage covering the surface of the medial femoral condyle along with oval-shaped lesions with cartilage loss consistent with grade 2. The examination of the notch showed a normal ACL with significant anterior synovitis. The lateral compartment showed minimal chondromalacia (2-3 small areas of approximately 5 to 6 mm in diameter) with a normal-appearing lateral meniscus however there was a small area in the posterior horn where the inner layer was frayed. There was no bryson tear and there was no instability. Patellofemoral compartment was normal with normal cartilage and normal patellofemoral tracking. There were no loose bodies. Attention was then turned back to the medial compartment. Utilizing a series of arthroscopic ignacia the torn portion of the medial meniscus was removed and the remaining rim was trimmed to a relatively normal and stable contour. The meniscus was once again probed and was found to be quite stable. All fluid and debris was then removed from the knee with suction. The arthroscopic portals were then closed utilizing 2-0 Vicryl subcutaneous sutures. Steri-Strips were applied to the skin for both portals. A sterile compressive dressing was applied with an ABD which was secured with an Zachary wrap. The patient was then awakened and taken to recovery room in excellent condition. Estimated blood loss: Negligible Drains : None Tourniquet time: 42 minutes
[2021-05-02] MEDS ORDERED: SODIUM CHLORIDE 0.9% 1000 ML 1,000 ML IV SCH (11:00)
[2021-05-02 12:50] VITALS: BP 126/78
== END 2021-05-02 12:10 | disposition home or self-care (01) ==
LOC: OR 06:10
PROVIDERS: ATTEND Orthopaedic Surgery
DX: S83.241A Other tear of medial meniscus, current injury, right knee, initial encounter (principal); M94.261 Chondromalacia, right knee; I10 Essential (primary) hypertension; Z79.899 Other long term (current) drug therapy; Z98.890 Other specified postprocedural states; X58.XXXA Exposure to other specified factors, initial encounter; Y93.89 Activity, other specified; Y92.89 Other specified places as the place of occurrence of the external cause
CPT/HCPCS: 29881; J0690; J1030; J1100; J1170; J1885; J2250; J2405; J2704; J3010; J3490; J7120; U0003

== ENCOUNTER 2021-10-24 18:07 | Emergency (ER) | payer BC ==
[2021-10-24 18:29] VITALS: BP 165/80
[2021-10-24] MEDS ORDERED: KETOROLAC 60 MG/2 ML INJ IM ONE (19:54)
--- NOTE | 2021-10-24 19:57 | Emergency Department Report ---
ED General Adult HPI - General Chief complaint: Pain General Stated complaint: RIGHT SIDE PAIN PUI?: No Time Seen by Provider: 10/24/21 19:53 Source: patient Mode of arrival: Ambulatory Limitations: No Limitations - History of Present Illness Initial comments: Pt reports she injured her right upper back while working in [employer]. -: Gradual, hour(s) Location: back Radiation: non-radiation Severity scale (0 -10): 8 Consistency: constant Worsens with: movement Associated Symptoms: denies: denies other symptoms, confusion - Related Data Home Medications Medication Instructions Recorded Confirmed Last Taken Norvasc 2.5 mg PO DAILY 08/24/20 05/02/21 05/02/21 Allergies Allergy/AdvReac Type Severity Reaction Status Date / Time No Known Allergies Allergy Verified 11/05/20 12:53 ED Review of Systems ROS: Stated complaint: RIGHT SIDE PAIN Other details as noted in HPI Constitutional: denies: chills, fever Eyes: denies: eye pain, eye discharge, vision change ENT: denies: ear pain, throat pain Respiratory: denies: cough, shortness of breath, wheezing Cardiovascular: denies: chest pain, palpitations Endocrine: no symptoms reported Gastrointestinal: denies: abdominal pain, nausea, diarrhea Genitourinary: denies: urgency, dysuria, discharge Musculoskeletal: denies: back pain, joint swelling, arthralgia Skin: denies: rash, lesions Neurological: denies: headache, weakness, paresthesias Psychiatric: denies: anxiety, depression Hematological/Lymphatic: denies: easy bleeding, easy bruising ED Past Medical Hx - Past Medical History Hx Hypertension: Yes (X 3 YRS) Hx Congestive Heart Failure: No Hx Diabetes: No Hx Sickle Cell Disease: No Hx Arthritis: Yes Hx Asthma: No Hx COPD: No Hx Tuberculosis: Yes (+ SKIN TEST ,NO TX , NEG CXR) Hx HIV: No - Surgical History Hx Cholecystectomy: Yes Hx Appendectomy: Yes Additional Surgical History: Appendectomy - Social History Smoking Status: Never Smoker - Medications Home Medications: Home Medications Medication Instructions Recorded Confirmed Last Taken Type Norvasc 2.5 mg PO DAILY 08/24/20 05/02/21 05/02/21 History ED Physical Exam - General Limitations: No Limitations General appearance: alert, in no apparent distress - Head Head exam: Present: atraumatic, normocephalic - Eye Eye exam: Present: normal appearance - ENT ENT exam: Present: mucous membranes moist - Neck Neck exam: Present: normal inspection - Respiratory Respiratory exam: Present: normal lung sounds bilaterally. Absent: respiratory distress - Cardiovascular Cardiovascular Exam: Present: regular rate, normal rhythm. Absent: systolic murmur, diastolic murmur, rubs, gallop - GI/Abdominal GI/Abdominal exam: Present: soft, normal bowel sounds - Extremities Exam Extremities exam: Present: normal inspection - Back Exam Back exam: Present: normal inspection - Neurological Exam Neurological exam: Present: alert, oriented X3 - Psychiatric Psychiatric exam: Present: normal affect, normal mood - Skin Skin exam: Present: warm, dry, intact, normal color. Absent: rash ED Course Vital Signs 10/24/21 18:26 Pulse Rate 62 Respiratory 18 Rate Blood Pressure 165/80 [Right] O2 Sat by Pulse 100 Oximetry ED Medical Decision Making - Medical Decision Making requested toradol shot for her pain and no other work up Critical care attestation.: If time is entered above; I have spent that time in minutes in the direct care of this critically ill patient, excluding procedure time. ED Disposition Clinical Impression: Back pain Disposition: 01 HOME / SELF CARE / HOMELESS Is pt being admited?: No Does the pt Need Aspirin: No Condition: Stable Instructions: Back Injury Prevention, Chronic Back Pain
== END 2021-10-24 21:57 | disposition home or self-care (01) ==
LOC: ED 18:07
DX: M54.9 Dorsalgia, unspecified (principal); I10 Essential (primary) hypertension; M19.90 Unspecified osteoarthritis, unspecified site; A15.9 Respiratory tuberculosis unspecified; Z98.890 Other specified postprocedural states
CPT/HCPCS: 96372; 99282; J1885